=== PATIENT | male | born 1935 | race Caucasian/White ===

== ENCOUNTER → 2016-02-28 | Outpatient (CLI) | payer MEDICARE, OTHER ==
[~2016-02-28] MED LIST: ALLOPURINOL300 M1 ORAL; BENICAR40 MG ORAL; BYSTOLIC10 MG ORAL; PROSCAR5 MG ORAL
--- NOTE | 2016-02-28 14:16 | Diagnostic Imaging Report ---
Indication: Cough Comparison: None 2 views of the chest obtained. No definite infiltrate or pulmonary vascular congestion identified. Pacemaker noted on the left. The heart is enlarged. 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 The bones are osteopenic. Impression: No acute disease
== END | disposition home or self-care (01) ==
LOC: EDBD 13:17 → RAD 13:17
DX: R05 Cough (principal)
CPT/HCPCS: 71020

== ENCOUNTER → 2016-06-13 | Outpatient (CLI) | payer MEDICARE, OTHER ==
--- NOTE | 2016-06-14 08:32 | Diagnostic Imaging Report ---
Indication: COUGH Technique: Two views of the chest Comparison: 02/28/2016 Findings: Atelectasis and scarring seen at the left lung base. There is a left chest bifocal pacemaker. Lungs and pleural spaces are otherwise clear. Heart is upper borderline enlarged. Impression: Or organomegaly Left basilar atelectasis. No acute process otherwise Pacemaker
== END | disposition home or self-care (01) ==
LOC: RAD 11:25
DX: R05 Cough (principal); J98.11 Atelectasis; Z95.0 Presence of cardiac pacemaker
CPT/HCPCS: 71020

== ENCOUNTER 2017-02-11 11:25 | Outpatient (CLI) | payer MEDICARE, OTHER ==
--- NOTE | 2017-02-11 15:06 | Diagnostic Imaging Report ---
Indication: Cough Comparison: 06/13/2016 2 views of the chest obtained. Vascularity and interstitium are mildly prominent. Heart size is relatively normal. Pacemaker noted on the left. Bones are osteopenic. IMPRESSION: Interstitial prominence. Mild CHF/edema not excluded. Please correlate clinically
== END 2017-02-11 13:25 | disposition home or self-care (01) ==
LOC: RAD 11:25
DX: R05 Cough (principal); I50.9 Heart failure, unspecified; M85.80 Other specified disorders of bone density and structure, unspecified site
CPT/HCPCS: 71020

== ENCOUNTER → 2017-04-14 | Outpatient (CLI) | payer MEDICARE, OTHER ==
--- NOTE | 2017-04-14 12:54 | Diagnostic Imaging Report ---
Indication: Cough Comparison: 02/11/2017 2 views of the chest obtained. No definite infiltrate or pulmonary vascular congestion identified. Pacemaker noted. The heart is enlarged. 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 The bones are osteopenic. Impression: No acute disease
== END | disposition home or self-care (01) ==
LOC: RAD 12:08
DX: R05 Cough (principal); M85.88 Other specified disorders of bone density and structure, other site; I51.7 Cardiomegaly; Z95.0 Presence of cardiac pacemaker
CPT/HCPCS: 71046